=== PATIENT | female | born 1980 | race Caucasian/White ===

== ENCOUNTER 2017-02-27 06:53 | Emergency (ER) | payer OTHER ==
[~2017-02-27] VITALS: Ht 175.3 cm; Wt 76.0 kg
[~2017-02-27 06:53] MED LIST: CETI10CA PO; CHOL200026 PO; DOCU-30 PO; IBUP-1222 PO; OXYC-302 PO; PREN1TAB60 PO; THYR325T PO
[2017-02-27] MEDS ORDERED: THYR16.2 PO (07:14)
[2017-02-27] MEDS ORDERED: THYR130T2 PO (07:15)
[2017-02-27] MEDS ORDERED: HYDROmorphone 1 MG/ML, 1ML ONE (07:23)
[2017-02-27] MEDS ORDERED: KETOROLAC 30 MG/1 ML ONE (07:25)
[2017-02-27] MEDS ORDERED: DIAZEPAM 5 MG/ML, 2ML ONE (07:25)
[2017-02-27] MEDS ORDERED: HYDROmorphone 1 MG/ML, 1ML IVPush PRN (07:30)
[2017-02-27] MEDS ORDERED: KETOROLAC 30 MG/1 ML IVPush ONE (07:30)
[2017-02-27] MEDS ORDERED: DIAZEPAM 5 MG/ML, 2ML IVPush ONE (07:30)
[2017-02-27] MEDS ORDERED: SODIUM CHLORIDE FLUSH 10ML SYR IVF ONE (07:30)
[2017-02-27 07:43] LABS: HEMATOCRIT 44.4 % (34.6-47.8); HEMOGLOBIN 15.2 g/dL (11.7-16.4)
[2017-02-27 09:46] VITALS: BP 104/60
== END 2017-02-27 10:21 | disposition home or self-care (01) ==
LOC: ED 07:31
DX: M50.223 Other cervical disc displacement at C6-C7 level (principal); L04.0 Acute lymphadenitis of face, head and neck
CPT/HCPCS: 36415; 72125; 85025; 96374; 96375; 99285; J1170; J1885; J3360

== ENCOUNTER 2017-02-27 20:03 | Emergency (ER) | payer OTHER ==
[~2017-02-27] VITALS: Ht 175.3 cm; Wt 77.8 kg
[~2017-02-27 20:03] MED LIST changes: +THYR130T2 PO; +THYR16.2 PO
[2017-02-27 20:19] VITALS: BP 103/73
[2017-02-27] MEDS ORDERED: VALACYCLOVIR 500MG TABLET PO ONE (21:00)
[2017-02-27] MEDS ORDERED: DOCUSATE 100 MG CAPSULE PO ONE (21:00)
[2017-02-27] MEDS ORDERED: OXYcodone/APAP 5/325MG TABLET PO ONE (21:00)
[2017-02-27] MEDS ORDERED: OXYcodone/APAP 5/325MG TABLET ONE (21:18)
== END 2017-02-27 21:54 | disposition home or self-care (01) ==
LOC: ED 21:48
DX: B02.29 Other postherpetic nervous system involvement (principal); B02.9 Zoster without complications
CPT/HCPCS: 99284

== ENCOUNTER 2017-03-01 01:31 | Emergency (ER) | payer OTHER ==
[~2017-03-01] VITALS: Ht 175.3 cm; Wt 77.6 kg
[2017-03-01] MEDS ORDERED: FLUORESCEIN OPHTHALMIC 1 MG STRIP ONE (02:27)
[2017-03-01] MEDS ORDERED: PROPARACAINE OPHTH 0.5%, 15ML ONE (02:28)
[2017-03-01] MEDS ORDERED: GABAPENTIN 300 MG CAPSULE PO ONE (02:30)
[2017-03-01] MEDS ORDERED: FLUORESCEIN OPHTHALMIC 1 MG STRIP LEFTEYE ONE (02:30)
[2017-03-01] MEDS ORDERED: PROPARACAINE OPHTH 0.5%, 15ML LEFTEYE ONE (02:30)
[2017-03-01] MEDS ORDERED: OXYcodone/APAP 5/325MG TABLET ONE ×2 (02:35→03:57)
[2017-03-01] MEDS ORDERED: ONDANSETRON ODT 4 MG ONE ×2 (02:35→03:57)
[2017-03-01] MEDS: ONDANSETRON ODT 4 MG PO ONE ×2 (02:50→03:59)
[2017-03-01] MEDS: OXYcodone/APAP 5/325MG TABLET PO ONE ×2 (02:50→04:00)
[2017-03-01 03:35] VITALS: BP 137/81
== END 2017-03-01 04:08 | disposition home or self-care (01) ==
LOC: ED 03:38
DX: B02.29 Other postherpetic nervous system involvement (principal); I88.9 Nonspecific lymphadenitis, unspecified
CPT/HCPCS: 99284; Q0162